=== PATIENT | male | born 1965 | race Caucasian/White ===

== ENCOUNTER → 2022-02-18 | Outpatient (CLI) | payer OTHER ==
[~2022-02-18] MED LIST: LISI10TA24 PO
== END | disposition home or self-care (01) ==
LOC: RAH 13:41
PROVIDERS: ATTEND Family Medicine
DX: Z13.6 Encounter for screening for cardiovascular disorders (principal); K83.1 Obstruction of bile duct; K76.0 Fatty (change of) liver, not elsewhere classified
CPT/HCPCS: 75571